=== PATIENT | male | born 1955 | race African-American/Black ===

== ENCOUNTER 2017-05-18 08:23 | Day surgery (SDC) | payer BC ==
[2017-05-15 18:26] VITALS: BMI 27.9
[2017-05-18] MEDS ORDERED: LIDOCAINE HCL/PF 2% SDV 5ML VIAL ONE (10:07)
[2017-05-18] MEDS ORDERED: PROPOFOL 20 ML ONE (10:08)
[2017-05-18] MEDS ORDERED: MIDAZOLAM HCL 2 MG/2 ML SINGLE DOSE VIAL ONE (10:08)
[2017-05-18] MEDS ORDERED: DEXAMETHASONE SOD PHOSPHATE 4 MG/1 ML VIAL ONE (10:30)
[2017-05-18] MEDS ORDERED: IOHEXOL 300 MG/ML INFUS..BTL IV ONE (10:40)
[2017-05-18] MEDS ORDERED: KETOROLAC TROMETHAMINE 30 MG/1 ML VIAL ONE (11:13)
[2017-05-18] MEDS ORDERED: oxyCODONE HCL 5 MG TABLET PO PRN (11:41)
[2017-05-18] MEDS ORDERED: ONDANSETRON 4 MG/2 ML VIAL IVPUSH PRN (11:41)
[2017-05-18] MEDS ORDERED: LACTATED RINGERS SOLUTION 1,000 ML IV SCH (11:45)
[2017-05-18 12:16] VITALS: TEMP 98
--- NOTE | 2017-05-18 12:45 | OP ---
Operative Note - Note: Operative Date: 05/18/17 Pre-Operative Diagnosis: right renal stone Operation: cystoscopy/right retrograde peylogram/right ureteroscopic laser lithotripsy/right ureteral stent placement Findings: 1.5 cm right lower pole stone Post-Operative Diagnosis: Same as Pre-op Surgeon: Saroj Cabrera Anesthesia: General
[2017-05-18 13:05] VITALS: BP 133/88; PULSE 76
--- NOTE | 2017-05-18 22:19 | OP ---
DATE OF OPERATION: 05/18/2017 PREOPERATIVE DIAGNOSIS: Right renal stone. POSTOPERATIVE DIAGNOSIS: Right renal stone. PROCEDURE: Cystoscopy, right retrograde pyelogram, right ureteroscopic laser lithotripsy, right ureteral stent placement. ATTENDING: Saroj Smith MD ANESTHESIA: General. DESCRIPTION OF OPERATION: The patient was brought in the operating room, placed in supine position on the operating table. General anesthesia and preoperative antibiotics were administered. Patient was then prepped and draped in the usual sterile manner in a dorsal lithotomy position. The patient then underwent cystoscopy which showed no evidence of neoplasm within the bladder. No stones were noted either. An obstructive prostate with 1+ to 2+ bladder trabeculation was seen. A retrograde pyelogram was then performed on the right side. A large calcific density overlying the renal fossa was noted before the retrograde pyelogram. The retrograde pyelogram showed that this calcific density was within the kidney in a lower pole calyx. At this point, a wire was passed proximally to the kidney. A dilated sheath was placed into the distal ureter. With the outer sheath utilized, flexible ureteroscopy was performed. Flexible ureteroscopy was taken to the level of the stone. The stone was in a very difficult position. A holmium laser fiber was brought into the lower pole calyx. Lithotripsy was attempted. There was fragmentation of the stone noted. However, due to the bulky size of the kidney and inability to maintain position within the calyx, it was decided to leave the patient with a stent and to have an extracorporeal shock wave lithotripsy performed. No complications were noted. The patient tolerated the procedure very well. A 6-Upper Sorbian 24-cm stent was left in the right collecting system to the bladder. The Seldinger technique was utilized for placement of the stent. The disposition of the patient was to recovery room. Ines [id number]
== END 2017-05-18 13:20 | disposition home or self-care (01) ==
LOC: JASU-SURG 08:23
PROVIDERS: ATTEND Urology
PROC: 0TF38ZZ Fragmentation in Right Kidney Pelvis, Via Natural or Artificial Opening Endoscopic (ICD-10-PCS; principal; 2017-05-18 10:00)
PROC: 0T768DZ Dilation of Right Ureter with Intraluminal Device, Via Natural or Artificial Opening Endoscopic (ICD-10-PCS; 2017-05-18 10:00)
DX: N20.0 Calculus of kidney (principal)
CPT/HCPCS: 76000-TC-FY; 94760

== ENCOUNTER 2017-06-01 09:46 | Day surgery (SDC) | payer BC ==
[2017-05-28 13:48] VITALS: BMI 28.7
[2017-06-01] MEDS ORDERED: MIDAZOLAM HCL 2 MG/2 ML SINGLE DOSE VIAL ONE (10:52)
[2017-06-01] MEDS ORDERED: ONDANSETRON 4 MG/2 ML VIAL IVPUSH PRN (11:08)
[2017-06-01] MEDS ORDERED: oxyCODONE HCL 5 MG TABLET PO PRN (11:08)
[2017-06-01] MEDS ORDERED: LACTATED RINGERS SOLUTION 1,000 ML IV SCH (11:15)
--- NOTE | 2017-06-01 11:44 | OP ---
Operative Note - Note: Operative Date: 06/01/17 Pre-Operative Diagnosis: Right kidney stone Operation: Right ESWL Findings: 20 mm upper pole kidney stone Anesthesia: Fractional Operative Report Dictated: Yes
--- NOTE | 2017-06-01 12:12 | OP ---
Operative Note - Note: Operative Date: 06/01/17 Pre-Operative Diagnosis: Right kidney stone Operation: Right ESWL Surgeon: Saroj Cabrera Anesthesia: Fractional
[2017-06-01 12:24] VITALS: TEMP 97.4
[2017-06-01 12:51] VITALS: BP 117/83; PULSE 67
--- NOTE | 2017-06-02 09:34 | OP ---
DATE OF OPERATION: 06/01/2017 PREOPERATIVE DIAGNOSIS: Right renal stone. POSTOPERATIVE DIAGNOSIS: Right renal stone. PROCEDURE: Right extracorporeal shock wave lithotripsy. ATTENDING: Iesha Rojo MD ANESTHESIA: General. DESCRIPTION OF OPERATION: Patient was brought in the operating room, placed in supine position on the operating room table. Ultrasonography and fluoroscopy were performed. A 20-mm right upper pole stone was identified. Extracorporeal shock wave lithotripsy was started once preoperative antibiotics were administered; 3000 joules at 20 joules of power were administered to the stone. Good fragmentation of the stone was noted under real-time ultrasonography and fluoroscopy. No complications were noted. Patient tolerated the procedure very well. IESHA ROJO M.D. [id number]
== END 2017-06-01 13:30 | disposition home or self-care (01) ==
LOC: JASU-SURG 09:46
PROVIDERS: ATTEND Urology
PROC: 0TF3XZZ Fragmentation in Right Kidney Pelvis, External Approach (ICD-10-PCS; principal; 2017-06-01 11:00)
DX: N20.0 Calculus of kidney (principal)

== ENCOUNTER 2018-05-03 08:08 | Day surgery (SDC) | payer BC ==
[2018-04-29 16:25] VITALS: BMI 27.9
[2018-05-03] MEDS ORDERED: MIDAZOLAM HCL 2 MG/2 ML SINGLE DOSE VIAL ONE (11:20)
[2018-05-03] MEDS ORDERED: PROPOFOL 20 ML ONE (11:49)
[2018-05-03 12:12] VITALS: TEMP 97.6
--- NOTE | 2018-05-03 12:13 | OP ---
Operative Note - Note: Operative Date: 05/03/18 Pre-Operative Diagnosis: Right Renal stone Operation: Right ESWL Findings: 15 mm lower pole renal stone Surgeon: Saroj Cabrera Anesthesia: Fractional Estimated Blood Loss (mls): 0 Operative Report Dictated: Yes
[2018-05-03 13:45] VITALS: BP 121/86; PULSE 65
--- NOTE | 2018-05-04 09:09 | OP ---
DATE OF OPERATION: 05/03/2018 PREOPERATIVE DIAGNOSIS: Right renal stone. POSTOPERATIVE DIAGNOSIS: Right renal stone. PROCEDURE: Right extracorporeal shockwave lithotripsy. ATTENDING: Saroj Smith MD ANESTHESIA: General. OPERATION: The patient was brought in the operating room, placed in the supine position on the operating room table. Ultrasonography and fluoroscopy were performed. A 15-mm right lower pole stone was identified. Anesthesia and preoperative antibiotics were then administered. Shockwave lithotripsy was then performed. Patient tolerated the procedure very well. The disposition of the patient was to recovery room. Ines [id number]
== END 2018-05-03 13:30 | disposition home or self-care (01) ==
LOC: JASU-SURG 08:08
PROVIDERS: ATTEND Urology
PROC: 0TF3XZZ Fragmentation in Right Kidney Pelvis, External Approach (ICD-10-PCS; principal; 2018-05-03 10:15)
DX: N20.0 Calculus of kidney (principal)